=== PATIENT | male | born 1970 | race Caucasian/White ===

== ENCOUNTER 2017-08-22 19:21 | Emergency (ER) | payer MEDICAID ==
[2017-08-22 19:42] VITALS: BMI 25.0
--- NOTE | 2017-08-22 19:58 | C.PDOC ---
History Of Present Illness 46 y/o male with no significant PMHx presents to ED for complaints of bilateral testicular pain that began 4 hours ago. Patient also reports increased urination frequency and dysuria. Denies urethral discharge, fever, recent trauma , rash, back pain, prior sexually transmitted diseases. Patient has past surgical history of tonsillectomy that was done 10 years ago. History Per: Patient History/Exam Limitations: no limitations Onset/Duration Of Symptoms: Hrs (4) Current Symptoms Are (Timing): Still Present Recent travel outside of the [place]: No Past Medical History Reviewed: Historical Data, Nursing Documentation, Vital Signs Vital Signs: Last Vital Signs Temp 98.7 F 08/22/17 22:46 Pulse 80 08/22/17 22:46 Resp 16 08/22/17 22:46 BP 116/78 08/22/17 22:46 Pulse Ox 96 08/22/17 22:46 - Medical History PMH: No Chronic Diseases Family History: States: Unknown Family Hx - Social History Hx Tobacco Use: No Hx Alcohol Use: No Hx Substance Use: No - Immunization History Hx Tetanus Toxoid Vaccination: No Hx Influenza Vaccination: No Hx Pneumococcal Vaccination: No Review Of Systems Constitutional: Negative for: Fever, Chills, Other (Recent trauma) Genitourinary: Positive for: Dysuria, Frequency, Other (Bilateral testicular pain). Negative for: Hematuria, Penile Discharge, Rash Skin: Negative for: Rash, Lesions, Jaundice, Bruising Neurological: Negative for: Weakness, Numbness Physical Exam - Physical Exam Appears: Well, Non-toxic, No Acute Distress Skin: Normal Color, Warm, Dry, No Rash Head: Atraumatic, Normacephalic Eye(s): bilateral: Normal Inspection, PERRL, EOMI Oral Mucosa: Moist Throat: Normal, No Erythema, No Exudate, No Drooling Neck: Supple Chest: Symmetrical, No Tenderness Cardiovascular: Rhythm Regular, No Murmur Respiratory: Normal Breath Sounds, No Decreased Breath Sounds, No Rales, No Rhonchi, No Wheezing Gastrointestinal/Abdominal: Bowel Sounds (Active ), Soft, No Tenderness, No Hernia Male Genital: No Testicular Tenderness, Circumcised, Other (No extrernal skin lesions or rashes. Testicles normal contours with no focal tenderness but generalized discomfort. No masses.Cremasteric reflexes intact ) Extremity: Normal ROM Neurological/Psych: Oriented x3, Normal Speech, Normal Cognition Gait: Steady ED Course And Treatment - Laboratory Results Lab Interpretation: Normal - CT Scan/US Testicular US Other Rad Studies (CT/US): Read By Radiologist, Radiology Report Reviewed CT/US Interpretation: EXAM: US Scrotum. CLINICAL HISTORY: 46 years old, male ; Pain; Scrotum pain; Additional info: Testicular pain. TECHNIQUE: Real-time ultrasound of the scrotum with color Doppler and image documentation. COMPARISON: No relevant prior studies available. FINDINGS: Right testicle: No mass. No torsion. Left testicle: No mass. No torsion. Epididymides: Unremarkable as visualized. Scrotum: Small bilateral hydroceles. IMPRESSION: 1. No definite sonographic evidence of testicular torsion. 2. Incidental/non- acute findings are described above. Medical Decision Making Medical Decision Making: Impression: - Testicular pain - Ordered Urinalysis to r/o infection - Ordered Testicular US to r/o torsion Disposition - Disposition Referrals: [facility] [Outside] Disposition: HOME/ ROUTINE Disposition Time: 04:07 Condition: GOOD Instructions: Testicular Injury Forms: [employer] (Irish) Print Language: TOGOLESE - Clinical Impression Clinical Impression: Testicle pain - Scribe Statement The provider has reviewed the documentation as recorded by the Scribe Johan Ingram All medical record entries made by the Scribe were at my direction and personally dictated by me. I have reviewed the chart and agree that the record accurately reflects my personal performance of the history, physical exam, medical decision making, and the department course for this patient. I have also personally directed, reviewed, and agree with the discharge instructions and disposition.
[2017-08-22 20:00] LABS: URINE BILIRUBIN NEGATIVE (NEGATIVE); URINE BLOOD NEGATIVE (NEGATIVE); URINE CLARITY Clear (Clear); URINE COLOR Yellow (YELLOW); URINE GLUCOSE (UA) NORMAL (Normal); URINE LEUKOCYTE ESTERASE NEG Leu/uL (Negative); URINE PROTEIN NEGATIVE (NEGATIVE); URINE UROBILINOGEN NORMAL mg/dL (0.2-1.0)
--- NOTE | 2017-08-22 21:54 | US ---
EXAM: US Scrotum CLINICAL HISTORY: 46 years old, male; Pain; Scrotum pain; Additional info: Testicular pain TECHNIQUE: Real-time ultrasound of the scrotum with color Doppler and image documentation. COMPARISON: No relevant prior studies available. FINDINGS: Right testicle: No mass. No torsion. Left testicle: No mass. No torsion. Epididymides: Unremarkable as visualized. Scrotum: Small bilateral hydroceles. IMPRESSION: 1. No definite sonographic evidence of testicular torsion. 2. Incidental/non-acute findings are described above.
[2017-08-22 22:42] VITALS: RESP 16
[2017-08-22 22:47] VITALS: BP 116/78; PULSE 80; TEMP 98.7; O2SAT 96
== END 2017-08-22 23:15 | disposition home or self-care (01) ==
LOC: C.ER 19:21
DX: N50.812 Left testicular pain (principal); N50.811 Right testicular pain

== ENCOUNTER 2018-02-03 19:00 | Emergency (ER) | payer MEDICAID ==
[2018-02-03 19:00] VITALS: BMI 25.0
[2018-02-03] MEDS ORDERED: DiphenhydrAMINE 50 mg/ml Inj IVP STA (20:02)
[2018-02-03] MEDS ORDERED: Sodium Chloride 0.9% 1,000 ML IV STA (20:02)
--- NOTE | 2018-02-03 20:07 | C.PDOC ---
History Of Present Illness 47 y/o M c no PMHx p/w headache x 2 days. Headache is around the top of the head and also in the occiput. States he gets this headache a few times a year but never lasts this long which prompted him to come to ED. Took ibuprofen yesterday without much relief. Has never had headache evaluated medically before. Denies fever, chills, recent travel, neck stiffness, nausea, vomiting, vision change, numbness, weakness, tinnitus, taste changes. Denies any recent history of strong sneeze, massage, chiropracter visit, roller coaster, wrestling. Time Seen by Provider: 02/03/18 19:33 Chief Complaint (Nursing): Headache History Per: [employer] ([id number]) Past Medical History Vital Signs: Last Vital Signs Temp 98.1 F 02/03/18 19:14 Pulse 84 02/03/18 19:14 Resp 14 02/03/18 19:14 BP 121/77 02/03/18 19:14 Pulse Ox 98 02/03/18 19:14 Family History: States: Unknown Family Hx - Social History Hx Tobacco Use: No Hx Alcohol Use: No Hx Substance Use: No - Immunization History Hx Tetanus Toxoid Vaccination: No Hx Influenza Vaccination: No Hx Pneumococcal Vaccination: No Review Of Systems Except As Marked, All Systems Reviewed And Found Negative. Constitutional: Negative for: Fever Respiratory: Negative for: Shortness of Breath Physical Exam - Physical Exam Additional Physical Exam Comments: Constitutional: No acute distress. Head: Normocephalic. Atraumatic. Eyes: No ptosis. EOMI. ENT: Moist mucous membranes. Neck: No bruit. No pulsatile mass. No nuchal rigidity. Cardiovascular: Regular rate. Radial pulse 2+ bilaterally. Chest: No tenderness. Respiratory: Clear to auscultation bilaterally. GI: Soft. Nontender. Nondistended. Back: No CVA tenderness. Musculoskeletal: No tenderness or swelling of extremities. Skin: No rash. Neurologic: Alert, no focal deficit. Motor 5/5 x 4. Sensation to light touch intact bilaterally. ED Course And Treatment O2 Sat by Pulse Oximetry: 98 Medical Decision Making Medical Decision Making: CT Head IMPRESSION: Bilateral ethmoid sinusitis. No acute intracranial abnormality. Patient in no acute distress. Discharged home, f/u PMD, return to ED for worsening pain, fever, vomiting, stiff neck, vision change, tinnitus, numbness, weakness, or any other problem. Disposition - Disposition Disposition: HOME/ ROUTINE Disposition Time: 21:41 Condition: STABLE Prescriptions: Acetaminophen [Tylenol 325mg tab] 2 tab PO Q4H #30 tab Ibuprofen [Motrin] 600 mg PO Q6 #25 tab Instructions: Headache, Adult (DC) Forms: [employer] (Latvian) - Clinical Impression Clinical Impression: Headache
[2018-02-03] MEDS ORDERED: DiphenhydrAMINE 50 mg/ml Inj ONE (20:13)
[2018-02-03] MEDS ORDERED: Sodium Chloride 0.9% 1,000 ML ONE (20:14)
[2018-02-03 21:51] VITALS: BP 118/68; PULSE 81; RESP 18; TEMP 98; O2SAT 100
--- NOTE | 2018-02-04 08:37 | CT ---
Date of service: 02/03/2018 PROCEDURE: CT HEAD WITHOUT CONTRAST. HISTORY: headache COMPARISON: None available TECHNIQUE: Axial computed tomography images were obtained through the head/brain without intravenous contrast. Radiation dose: Total exam DLP = 1046.14 mGy-cm. This CT exam was performed using one or more of the following dose reduction techniques: Automated exposure control, adjustment of the mA and/or kV according to patient size, and/or use of iterative reconstruction technique. FINDINGS: HEMORRHAGE: No intracranial hemorrhage. BRAIN: No mass effect or edema. No atrophy or chronic microvascular ischemic changes.Please note that MRI with diffusion imaging is more sensitive in the detection of acute ischemic event. VENTRICLES: No hydrocephalus. CALVARIUM: Unremarkable. PARANASAL SINUSES: Mucosal thickening of the ethmoid air cells. Mild mucosal thickening of the maxillary sinuses. MASTOID AIR CELLS: Unremarkable as visualized. No inflammatory changes. OTHER FINDINGS: None. IMPRESSION: No acute intracranial pathology identified. Moderate mucosal thickening of ethmoid air cells and mild mucosal thickening of the included maxillary sinuses. Correlate clinically for sinusitis. Preliminary impression was provided by [employer].
== END 2018-02-03 21:51 | disposition home or self-care (01) ==
LOC: C.ER 19:00
DX: R51 Headache (principal)
CPT/HCPCS: 70450; 96374; 96375; 99285; J1200; J1885; J7030